=== PATIENT | male | born 1985 ===

== ENCOUNTER 2021-03-23 10:16 | Emergency (ER) | payer OTHER ==
[~2021-03-23] VITALS: Ht 185.4 cm; Wt 113.1 kg
[2021-03-23 11:17] VITALS: BP 159/86
== END 2021-03-23 11:31 | disposition left against medical advice (07) ==
LOC: ER 10:16
DX: U07.1 COVID-19 (principal); R06.02 Shortness of breath; R51.9 Headache, unspecified; Z53.21 Procedure and treatment not carried out due to patient leaving prior to being seen by health care provider
CPT/HCPCS: 36415; 87426